=== PATIENT | female | born 1960 | race Caucasian/White ===

== ENCOUNTER 2024-06-25 03:06 | Outpatient (RCR) | payer MEDICARE, SELFPAY ==
[2024-06-20 08:56] LABS: HCT 27.4 % (36.0-46.0); HGB 8.6 g/dL (11.2-15.7); MCHC 31.4 % (32.0-36.0); MCV 96 fL (80-95); MPV 10.6 fL (8.0-11.0); RBC 2.87 10^6/uL (3.93-5.22); RDW 18.5 % (11.7-14.6); RDW-SD 62.6 fL
[2024-06-20 09:10] LABS: Platelet Count 49 10^3/uL (130-400)
[2024-06-20 09:13] LABS: Absolute Basophil Count 0.09 10^3/uL (0.0-0.2); Absolute Eosinophil Count 0.01 10^3/uL (0.0-0.7); Absolute Lymphocyte Count 0.38 10^3/uL (1.2-3.4); Absolute Monocyte Count 0.52 10^3/uL (0.1-0.8); Absolute Neutrophil Count 2.54 10^3/uL (1.2-6.7); Basophils % 2.5 %; Eosinophils % 0.3 %; Immature Grans % 4.2 %; Lymphocytes % 10.2 %; Monocytes % 14.1 %; Neutrophils % 68.7 %
[2024-06-20 09:14] LABS: Diff Comment RBC Morph Reviewed; Microcytosis 1+; Polychromasia Present
[2024-06-20 09:28] LABS: ALT 16 U/L (14-59); AST 17 U/L (15-37); Alkaline Phosphatase 112 U/L (46-116); Anion Gap 8.7 mmol/L (3-11); BUN 4 mg/dL (7-18); Bilirubin, Total 0.64 mg/dL (0.2-1.0); CO2 29.3 mmol/L (21.0-32.0); CREATININE 0.8 mg/dL (0.55-1.02); Calcium 8.9 mg/dL (8.5-10.1); Chloride 107 mmol/L (98-107); Estimated GFR 81.72 (mL/min/1.73m2); Glucose 150 mg/dL (74-106); Potassium 3.4 mmol/L (3.5-5.1); Sodium 145 mmol/L (136-145); Total Protein 6.3 g/dL (6.4-8.2)
[2024-06-25 08:46] LABS: HCT 27.3 % (36.0-46.0); MCV 91 fL (80-95); MPV 11.8 fL (8.0-11.0); RDW 16.3 % (11.7-14.6); WBC 4.75 10^3/uL (4.4-10.8)
[2024-06-25 09:00] LABS: Platelet Count 45 10^3/uL (130-400)
== END 2024-06-26 23:59 | disposition home or self-care (01) ==
LOC: INF 03:06
PROVIDERS: Visit Provider Internal Medicine Hematology
DX: C91.00 Acute lymphoblastic leukemia not having achieved remission (principal)
CPT/HCPCS: 36415; 80053; 85027; 86850; 86900; 86901; 85025

== ENCOUNTER 2024-07-22 02:43 | Outpatient (RCR) | payer MEDICARE, SELFPAY ==
[2024-07-02 08:11] LABS: HCT 26.5 % (36.0-46.0); HGB 8.6 g/dL (11.2-15.7); MCH 30.8 pg (27.0-33.0); MCHC 32.5 % (32.0-36.0); MCV 95 fL (80-95); MPV 11.8 fL (8.0-11.0); RBC 2.79 10^6/uL (3.93-5.22); RDW 18.3 % (11.7-14.6); RDW-SD 62.4 fL; WBC 3.39 10^3/uL (4.4-10.8)
[2024-07-02 08:24] LABS: Platelet Count 23 10^3/uL (130-400)
[2024-07-03 14:53] VITALS: BP 140/81; PULSE 99; RESP 17; TEMP 36.7; O2SAT 99
[2024-07-03 15:12] VITALS: BP 138/60; PULSE 91; RESP 17; TEMP 37.5; O2SAT 100
[2024-07-05] MEDS: Normal Saline Flush 10 ML SYR IVP (11:17)
[2024-07-05 11:20] LABS: HCT 22.9 % (36.0-46.0); HGB 7.4 g/dL (11.2-15.7); MCH 30.6 pg (27.0-33.0); MCHC 32.3 % (32.0-36.0); MCV 95 fL (80-95); MPV 10.9 fL (8.0-11.0); RBC 2.42 10^6/uL (3.93-5.22); RDW 17.7 % (11.7-14.6); RDW-SD 59.8 fL
[2024-07-05 11:58] LABS: Platelet Count 16 10^3/uL (130-400)
[2024-07-05 16:46] VITALS: BP 150/74; PULSE 100; RESP 18; TEMP 36.7; O2SAT 98
[2024-07-05 17:01] VITALS: BP 154/76; PULSE 97; RESP 18; TEMP 36.6; O2SAT 100
[2024-07-06 08:45] VITALS: BP 153/79; PULSE 117; RESP 18; TEMP 36.5; O2SAT 99
[2024-07-06 09:00] VITALS: BP 128/74; PULSE 103; RESP 20; TEMP 36.6; O2SAT 99
[2024-07-06 09:15] VITALS: BP 131/79; PULSE 103; RESP 20; TEMP 36.5; O2SAT 99
[2024-07-06 09:45] VITALS: BP 132/76; PULSE 104; RESP 22; TEMP 36.6; O2SAT 98
[2024-07-06] MEDS: Normal Saline Flush 10 ML SYR IVP (09:53)
[2024-07-06 10:45] VITALS: BP 136/74; PULSE 103; RESP 20; TEMP 36.6; O2SAT 99
[2024-07-09 08:46] LABS: HCT 23.9 % (36.0-46.0); MCH 31.2 pg (27.0-33.0); MCHC 33.1 % (32.0-36.0); MCV 95 fL (80-95); MPV 10.6 fL (8.0-11.0); RBC 2.53 10^6/uL (3.93-5.22); RDW 17.3 % (11.7-14.6); RDW-SD 56.1 fL; WBC 2.84 10^3/uL (4.4-10.8)
[2024-07-09 09:50] LABS: HGB 7.9 g/dL (11.2-15.7); Platelet Count 9 10^3/uL (130-400)
[2024-07-09 10:05] VITALS: BP 131/61; PULSE 83; RESP 18; TEMP 36.4; O2SAT 99
[2024-07-09 10:20] VITALS: BP 127/50; PULSE 83; RESP 17; TEMP 36.8; O2SAT 100
[2024-07-09 10:35] VITALS: BP 130/60; PULSE 81; RESP 18; TEMP 36.8; O2SAT 100
[2024-07-09 11:50] VITALS: BP 140/61; PULSE 76; RESP 18; TEMP 36.7; O2SAT 100
[2024-07-09 13:15] VITALS: BP 141/59; PULSE 81; RESP 18; TEMP 36.7; O2SAT 100
[2024-07-09 13:35] VITALS: BP 146/63; PULSE 84; RESP 18; TEMP 36.4; O2SAT 99
[2024-07-09] MEDS: Normal Saline Flush 10 ML SYR IVP (14:09)
[2024-07-12] MEDS: Normal Saline Flush 10 ML SYR IVP (08:02)
[2024-07-12 08:37] LABS: HCT 24.2 % (36.0-46.0); HGB 8.2 g/dL (11.2-15.7); MCH 31.2 pg (27.0-33.0); MCHC 33.9 % (32.0-36.0); MCV 92 fL (80-95); MPV 10.7 fL (8.0-11.0); RDW 17.4 % (11.7-14.6); RDW-SD 54.9 fL
[2024-07-12 09:25] LABS: WBC 1.88 10^3/uL (4.4-10.8)
[2024-07-12 09:26] LABS: Platelet Count 11 10^3/uL (130-400); RBC 2.63 10^6/uL (3.93-5.22)
[2024-07-12 14:37] VITALS: BP 147/79; PULSE 79; RESP 17; TEMP 36.3; O2SAT 99
[2024-07-12 14:58] VITALS: BP 160/71; PULSE 85; RESP 17; TEMP 36.6; O2SAT 100
[2024-07-16] MEDS: Normal Saline Flush 10 ML SYR IVP (07:57)
[2024-07-16 08:07] LABS: HCT 22.5 % (36.0-46.0); HGB 7.5 g/dL (11.2-15.7); MCH 31.1 pg (27.0-33.0); MCHC 33.3 % (32.0-36.0); MCV 93 fL (80-95); MPV 8.8 fL (8.0-11.0); RBC 2.41 10^6/uL (3.93-5.22); RDW 17.2 % (11.7-14.6); RDW-SD 54.8 fL
[2024-07-16 08:37] LABS: WBC 1.36 10^3/uL (4.4-10.8)
[2024-07-16 08:42] LABS: Platelet Count 12 10^3/uL (130-400)
[2024-07-16 09:11] VITALS: BP 144/75; PULSE 83; RESP 17; TEMP 36.8; O2SAT 100
[2024-07-16 09:13] LABS: Absolute Eosinophil Count 0.03 10^3/uL (0.0-0.7); Absolute Lymphocyte Count 0.36 10^3/uL (1.2-3.4); Absolute Monocyte Count 0.06 10^3/uL (0.1-0.8); Absolute Neutrophil Count 0.92 10^3/uL (1.2-6.7); Eosinophils % 2.2 %; Lymphocytes % 26.3 %; Monocytes % 4.4 %; Neutrophils % 67.1 %
[2024-07-16 09:14] LABS: Diff Comment Diff Reviewed; RBC Morphology Normal
[2024-07-16 09:25] VITALS: BP 118/65; PULSE 89; RESP 17; TEMP 36.8; O2SAT 98
[2024-07-16 09:40] VITALS: BP 154/77; PULSE 86; RESP 17; TEMP 36.6; O2SAT 99
[2024-07-16 10:10] VITALS: BP 122/75; PULSE 83; RESP 17; TEMP 36.9; O2SAT 99
[2024-07-16 11:10] VITALS: BP 139/56; PULSE 83; RESP 17; TEMP 36.9; O2SAT 100
[2024-07-16 13:25] VITALS: BP 139/56; PULSE 83; RESP 17; TEMP 36.9; O2SAT 100
[2024-07-22 07:39] LABS: Absolute Eosinophil Count 0.01 10^3/uL (0.0-0.7); Absolute Lymphocyte Count 0.42 10^3/uL (1.2-3.4); Absolute Monocyte Count 0.08 10^3/uL (0.1-0.8); Eosinophils % 1.3 %; HCT 21.1 % (36.0-46.0); HGB 7.2 g/dL (11.2-15.7); Lymphocytes % 52.5 %; MCH 31.4 pg (27.0-33.0); MCHC 34.1 % (32.0-36.0); MCV 92 fL (80-95); MPV 12.2 fL (8.0-11.0); Neutrophils % 36.2 %; RBC 2.29 10^6/uL (3.93-5.22); RDW 16.3 % (11.7-14.6); RDW-SD 51.8 fL
[2024-07-22 07:55] LABS: Diff Comment Agrees w/ Instrument; RBC Morphology Normal
[2024-07-22 08:11] LABS: Absolute Neutrophil Count 0.29 10^3/uL (1.2-6.7); Platelet Count 20 10^3/uL (130-400)
[2024-07-22 08:45] VITALS: BP 132/72; PULSE 82; RESP 20; TEMP 36.4; O2SAT 99
[2024-07-22 09:00] VITALS: BP 128/65; PULSE 77; RESP 18; TEMP 36.4; O2SAT 99
[2024-07-22 09:15] VITALS: BP 132/61; PULSE 76; RESP 18; TEMP 36.5; O2SAT 100
[2024-07-22 09:45] VITALS: BP 138/76; PULSE 77; RESP 18; TEMP 36.5; O2SAT 100
[2024-07-22 10:35] VITALS: BP 134/75; PULSE 80; RESP 18; TEMP 36.5; O2SAT 100
[2024-07-22 12:30] VITALS: BP 136/75; PULSE 82; RESP 18; TEMP 36.7; O2SAT 100
[2024-07-22] MEDS: Normal Saline Flush 10 ML SYR IVP (12:48)
== END 2024-07-27 23:59 | disposition home or self-care (01) ==
LOC: INF 02:43
PROVIDERS: Visit Provider Internal Medicine Hematology
DX: C91.00 Acute lymphoblastic leukemia not having achieved remission (principal)
CPT/HCPCS: 36415; 36430; 36591; 85027; 86850; 86900; 86901; 86920; 86945; 96365; 96366; 96523; P9073; 85007; 85025; P9016; P9035

== ENCOUNTER 2024-08-20 01:56 | Outpatient (RCR) | payer MEDICARE, SELFPAY ==
[2024-08-13 07:36] LABS: HCT 29.6 % (36.0-46.0); HGB 9.7 g/dL (11.2-15.7); MCH 30.5 pg (27.0-33.0); MCHC 32.8 % (32.0-36.0); MCV 93 fL (80-95); Platelet Count 64 10^3/uL (130-400); RBC 3.18 10^6/uL (3.93-5.22); RDW-SD 64.1 fL
[2024-08-13 08:08] LABS: MPV 9.6 fL (8.0-11.0)
[2024-08-13 08:22] LABS: WBC 1.59 10^3/uL (4.4-10.8)
[2024-08-13 08:51] LABS: Absolute Basophil Count 0.02 10^3/uL (0.0-0.2); Absolute Lymphocyte Count 0.45 10^3/uL (1.2-3.4); Absolute Monocyte Count 0.19 10^3/uL (0.1-0.8); Absolute Neutrophil Count 0.87 10^3/uL (1.2-6.7); Metamyelocytes % 2; Myelocytes % 3
[2024-08-13 08:52] LABS: Diff Comment Manual Differential; RBC Morphology Normal
[2024-08-13] MEDS: Normal Saline Flush 10 ML SYR IVP (08:54)
== END 2024-08-26 23:59 | disposition home or self-care (01) ==
LOC: INF 01:56
PROVIDERS: Visit Provider Internal Medicine Hematology
DX: C91.00 Acute lymphoblastic leukemia not having achieved remission (principal)
CPT/HCPCS: 36592; 85027; 86850; 86900; 86901; 85007

== ENCOUNTER 2024-09-03 08:00 | Outpatient (RCR) | payer MEDICARE, SELFPAY ==
[2024-08-30] MEDS: Normal Saline Flush 10 ML SYR IVP (07:45)
[2024-08-30 07:47] LABS: HCT 29.7 % (36.0-46.0); HGB 9.8 g/dL (11.2-15.7); MCH 30.2 pg (27.0-33.0); MCV 91 fL (80-95); MPV 11.2 fL (8.0-11.0); RBC 3.25 10^6/uL (3.93-5.22); RDW-SD 67.7 fL; WBC 4.23 10^3/uL (4.4-10.8)
[2024-08-30 08:13] LABS: Platelet Count 75 10^3/uL (130-400); RDW 20.3 % (11.7-14.6)
[2024-09-03] MEDS: Normal Saline Flush 10 ML SYR IVP (07:45)
[2024-09-03 08:00] LABS: HCT 29.1 % (36.0-46.0); HGB 9.4 g/dL (11.2-15.7); MCH 30.2 pg (27.0-33.0); MCHC 32.3 % (32.0-36.0); MCV 94 fL (80-95); MPV 10.6 fL (8.0-11.0); RBC 3.11 10^6/uL (3.93-5.22); RDW 19.7 % (11.7-14.6); RDW-SD 65.6 fL; WBC 3.46 10^3/uL (4.4-10.8)
[2024-09-03 08:10] LABS: Platelet Count 96 10^3/uL (130-400)
== END 2024-09-26 23:59 | disposition home or self-care (01) ==
LOC: INF 08:00
PROVIDERS: Visit Provider Internal Medicine Hematology
DX: C91.00 Acute lymphoblastic leukemia not having achieved remission (principal); Z45.2 Encounter for adjustment and management of vascular access device
CPT/HCPCS: 36430; 36591; 85027; 86850; 86900; 86901; 85025

== ENCOUNTER 2025-04-17 03:07 | Outpatient (CLI) | payer MEDICARE, SELFPAY ==
[2025-04-17 16:13] LABS: Abs Immature Grans 0.02 10^3/uL (0.0-0.06); Absolute Basophil Count 0.02 10^3/uL (0.0-0.2); Absolute Eosinophil Count 0.12 10^3/uL (0.0-0.7); Absolute Lymphocyte Count 2.01 10^3/uL (1.2-3.4); Absolute Monocyte Count 0.31 10^3/uL (0.1-0.8); Absolute Neutrophil Count 2.35 10^3/uL (1.2-6.7); Basophils % 0.4 %; Eosinophils % 2.5 %; HGB 11.3 g/dL (11.2-15.7); Immature Grans % 0.4 %; Lymphocytes % 41.6 %; MCH 34.5 pg (27.0-33.0); MCHC 32.3 % (32.0-36.0); MCV 107 fL (80-95); MPV 9.3 fL (8.0-11.0); Monocytes % 6.4 %; Neutrophils % 48.7 %; RBC 3.28 10^6/uL (3.93-5.22); RDW-SD 62.7 fL; WBC 4.83 10^3/uL (4.4-10.8)
[2025-04-17 16:24] LABS: Diff Comment RBC Morph Reviewed; Macrocytosis 1+; Platelet Count 65 10^3/uL (130-400)
[2025-04-17 17:02] LABS: ALT 21 U/L (14-59); AST 37 U/L (15-37); Albumin 3.5 g/dL (3.4-5.0); Alkaline Phosphatase 127 U/L (46-116); Anion Gap 6.9 mmol/L (3-11); BUN 18 mg/dL (7-18); Bilirubin, Total 0.4 mg/dL (0.2-1.0); CO2 29.1 mmol/L (21.0-32.0); Calcium 9.2 mg/dL (8.5-10.1); Chloride 104 mmol/L (98-107); Estimated GFR 62.13 (mL/min/1.73m2); Glucose 91 mg/dL (74-106); Potassium 3.8 mmol/L (3.5-5.1); Sodium 140 mmol/L (136-145)
[2025-04-18 09:35] LABS: Tacrolimus 24.2 ng/mL (See Note)
== END 2025-04-17 03:08 | disposition home or self-care (01) ==
PROVIDERS: Visit Provider Nurse Practitioner Adult Health
DX: Z94.81 Bone marrow transplant status (principal); C91.01 Acute lymphoblastic leukemia, in remission
CPT/HCPCS: 36415; 80053; 80197; 85025